=== PATIENT | female | born 2000 | race Caucasian/White ===

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

== ENCOUNTER 2022-01-22 11:02 | Emergency (ER) | payer OTHER ==
[2022-01-22 11:14] VITALS: RESP 16; TEMP 98.1
[2022-01-22] MEDS ORDERED: SODIUM CHLORIDE 0.9% 500 ML 500 ML IV STA (11:48)
[2022-01-22] MEDS ORDERED: SODIUM CHLORIDE 0.9% 1,000 ML IV STA (11:48)
[2022-01-22 12:01] LABS: Basophils % (A) 0 %; Eosinophils % (A) 1 %; HCT 34.2 % (34.0-46.0); HGB 12.1 gm/dL (11.4-16.0); Lymphocytes # (A) 1.6 k/uL (1.0-4.8); Lymphocytes % (A) 21 %; MCH 29.5 pg (25.0-35.0); MCHC 35.3 g/dL (31.0-37.0); MCV 83.8 fL (80.0-100.0); Monocytes # (A) 0.4 k/uL (0-1.0); Monocytes % (A) 5 %; Neutrophils # (A) 5.8 k/uL (1.3-7.7); Neutrophils % (A) 72 %; Platelet Count 297 k/uL (150-450); RBC 4.08 m/uL (3.80-5.40); RDW 13.5 % (11.5-15.5)
[2022-01-22 12:26] LABS: ALT 15 U/L (4-34); AST 17 U/L (14-36); African American GFR (CKD) >90 (>60 ml/min/1.73 sqM); Alkaline Phosphatase 58 U/L (38-126); Anion Gap 13 mmol/L; Blood Urea Nitrogen 5 mg/dL (7-17); Calcium 9.1 mg/dL (8.4-10.2); Carbon Dioxide 17 mmol/L (22-30); Chloride 105 mmol/L (98-107); Glucose 87 mg/dL (74-99); Non-African American GFR(CKD) >90 (>60 ml/min/1.73 sqM); Potassium 3.9 mmol/L (3.5-5.1); Sodium 135 mmol/L (137-145); Total Bilirubin 0.3 mg/dL (0.2-1.3); Total Protein 6.5 g/dL (6.3-8.2)
--- NOTE | 2022-01-22 12:28 | ED ---
General Adult HPI - General Chief complaint: Abdominal Pain Stated complaint: Abd pain,14 wks Time Seen by Provider: 01/22/22 11:10 Source: patient, RN notes reviewed Mode of arrival: ambulatory Limitations: no limitations - History of Present Illness Initial comments: 21-year-old female presents emergency department with chief complaint of lower abdominal pain. Patient states that she is currently 15 weeks . Patient sates her STORE HOST is Dr. Aguilera. Patient states that she contact on- call STORE HOST last night advises ecchymosis it was from ligament pain but seems to be worsening. She denies any vaginal bleeding or vaginal discharge. She states that the left lower quadrant. Patient states she does have mild left flank pain. Denies fever or chills. No increased nausea and diarrhea constipation - Related Data Previous Rx's Medication Instructions Recorded Albuterol Sulfate [Proair Hfa] 2 puff INHALATION Q4HR PRN #1 09/22/17 inhaler Azithromycin 250 mg PO DAILY #6 tab 09/22/17 Cephalexin [Keflex] 500 mg PO Q8HR #21 cap 01/22/22 Allergies Allergy/AdvReac Type Severity Reaction Status Date / Time No Known Allergies Allergy Verified 09/12/20 13:22 Review of Systems ROS Statement: Those systems with pertinent positive or pertinent negative responses have been documented in the HPI. ROS Other: All systems not noted in ROS Statement are negative. Past Medical History Past Medical History: Asthma Additional Past Medical History / Comment(s): knee dislocation History of Any Multi-Drug Resistant Organisms: None Reported Past Surgical History: No Surgical Hx Reported Past Psychological History: No Psychological Hx Reported Smoking Status: Current every day smoker Past Alcohol Use History: None Reported Past Drug Use History: None Reported General Exam Limitations: no limitations General appearance: alert, in no apparent distress Head exam: Present: atraumatic, normocephalic, normal inspection Eye exam: Present: normal appearance, PERRL, EOMI. Absent: scleral icterus, conjunctival injection, periorbital swelling ENT exam: Present: normal exam, normal oropharynx, mucous membranes moist Neck exam: Present: normal inspection. Absent: tenderness, meningismus, lymphadenopathy Respiratory exam: Present: normal lung sounds bilaterally. Absent: respiratory distress, wheezes, rales, rhonchi, stridor Cardiovascular Exam: Present: regular rate, normal rhythm, normal heart sounds. Absent: systolic murmur, diastolic murmur, rubs, gallop, clicks GI/Abdominal exam: Present: soft, tenderness (Left lower quadrant), normal bowel sounds. Absent: distended, guarding, rebound, rigid Back exam: Present: CVA tenderness (L). Absent: CVA tenderness (R) Neurological exam: Present: alert Skin exam: Present: warm, dry, intact, normal color. Absent: rash Course Vital Signs 01/22/22 11:11 Temperature 98.1 F Pulse Rate 98 Respiratory 16 Rate Blood Pressure 96/65 O2 Sat by Pulse 99 Oximetry Medical Decision Making - Medical Decision Making Ultrasound DOES NOT SHOW ANY SIGNIFICANT ABNORMALITY. PATIENT DOES HAVE MODERATE AMOUNT OF BACTERIA, 24 WBC'S AND URINALYSIS THOUGH IS SKEWED BY EPITHELIAL CELLS. PATIENT IS CURRENTLY 15 WEEKS WAS PLACED ON ANTIBIOTICS PENDING CULTURE. - Lab Data Result diagrams: 01/22/22 11:56 01/22/22 11:56 Lab Results 01/22/22 01/22/22 01/22/22 Range/Units 11:56 11:56 11:56 WBC 8.0 (4.0-11.0) k/uL RBC 4.08 (3.80-5.40) m/uL Hgb 12.1 (11.4-16.0) gm/dL Hct 34.2 (34.0-46.0) % MCV 83.8 (80.0-100.0) fL MCH 29.5 (25.0-35.0) pg MCHC 35.3 (31.0-37.0) g/dL RDW 13.5 (11.5-15.5) % Plt Count 297 (150-450) k/uL MPV 8.0 Neutrophils % 72 % Lymphocytes % 21 % Monocytes % 5 % Eosinophils % 1 % Basophils % 0 % Neutrophils # 5.8 (1.3-7.7) k/uL Lymphocytes # 1.6 (1.0-4.8) k/uL Monocytes # 0.4 (0-1.0) k/uL Eosinophils # 0.0 (0-0.7) k/uL Basophils # 0.0 (0-0.2) k/uL Sodium 135 L (137-145) mmol/L Potassium 3.9 (3.5-5.1) mmol/L Chloride 105 (98-107) mmol/L Carbon Dioxide 17 L (22-30) mmol/L Anion Gap 13 mmol/L BUN 5 L (7-17) mg/dL Creatinine 0.58 (0.52-1.04) mg/dL Est GFR (CKD-EPI)AfAm >90 (>60 ml/min/1.73 sqM) Est GFR (CKD-EPI)NonAf >90 (>60 ml/min/1.73 sqM) Glucose 87 (74-99) mg/dL Calcium 9.1 (8.4-10.2) mg/dL Total Bilirubin 0.3 (0.2-1.3) mg/dL AST 17 (14-36) U/L ALT 15 (4-34) U/L Alkaline Phosphatase 58 (38-126) U/L Total Protein 6.5 (6.3-8.2) g/dL Albumin 4.0 (3.5-5.0) g/dL Urine Color Yellow Urine Appearance Turbid H (Clear) Urine pH 6.5 (5.0-8.0) Ur Specific [place] 1.023 (1.001-1.035) Urine Protein 1+ H (Negative) Urine Glucose (UA) Negative (Negative) Urine Ketones Negative (Negative) Urine Blood Negative (Negative) Urine Nitrite Negative (Negative) Urine Bilirubin Negative (Negative) Urine Urobilinogen <2.0 (<2.0) mg/dL Ur Leukocyte Esterase Large H (Negative) Urine RBC 2 (0-5) /hpf Urine WBC 24 H (0-5) /hpf Ur Squamous Epith Cells 24 H (0-4) /hpf Urine Bacteria Many H (None) /hpf Urine Mucus Many H (None) /hpf Urine Yeast (Budding) Moderate H (None) /hpf Disposition Clinical Impression: Abdominal pain during , UTI (urinary tract infection) Disposition: HOME SELF-CARE Condition: Stable Instructions (If sedation given, give patient instructions): Abdominal Pain in (ED) Additional Instructions: Please return to the Emergency Department if symptoms worsen or any other concerns. Prescriptions: Cephalexin [Keflex] 500 mg PO Q8HR #21 cap Is patient prescribed a controlled substance at d/c from ED?: No Referrals: Jessica Chahal MD [Primary Care Provider] - 1-2 days Time of Disposition: 13:02
[2022-01-22 12:37] LABS: Appearance,Urine Turbid (Clear); Bacteria,Urine Many /hpf; Bilirubin,Urine Negative (Negative); Blood,Urine Negative (Negative); Budding Yeast,Urine Moderate /hpf; Color,Urine Yellow; Glucose,Urine (UA) Negative (Negative); Ketones,Urine Negative (Negative); Leukocyte Esterase,Urine Large (Negative); Mucus,Urine Many /hpf; Nitrite,Urine Negative (Negative); PH, Urine 6.5 (5.0-8.0); Protein,Urine 1+ (Negative); RBC,Urine 2 /hpf (0-5); Specific Gravity,Urine 1.023 (1.001-1.035); Squamous Epithelial Cell,Urine 24 /hpf (0-4); Urobilinogen,Urine <2.0 mg/dL (<2.0); WBC,Urine 24 /hpf (0-5)
--- NOTE | 2022-01-22 12:39 | US ---
EXAMINATION TYPE: US OB >= 14 wk fetus DATE OF EXAM: 01/22/2022 COMPARISON: US CLINICAL HISTORY: pain Pt states left side ABD cramping TECHNIQUE: Transabdominal (TA) GESTATIONAL AGE / DATING Physician Established: (14 weeks/5 days) EDC: 07/18/2022 Dates by LMP: LMP unknown Dates by First Scan: (15 weeks/0 days) EDC: 07/16/2022 Dates by Current Scan: (15 weeks/1 days) EDC: 07/15/2022 SURVEY IUP: Single PLACENTA: Anterior PREVIA: No Previa THANH: 11.5 cm Normal CERVICAL LENGTH (transabdominal: norm > 3.0cm): 3.5 cm BIOMETRY PRESENTATION: Vertex BPD: 2.9 cm 15 weeks / 2 days HC: 11.0 cm 15 weeks / 2 days AC: 8.9 cm 15 weeks / 1 days FL: 1.4 cm 14 weeks / 0 days ESTIMATED WEIGHT IN GRAMS: 103.2 grams ESTIMATED WEIGHT IN LBS/OZ: 0 lbs. 4 oz. WEIGHT PERCENTAGE BASED ON ESTABLISHED DATES: 32.4% HC/AC: 1.24 Normal FL/AC: 17 Normal HEART RATE: 155 bpm RHYTHM: Normal Single, viable IUP/ No abnormality visualized at this time to account for pt's pain IMPRESSION: Single live intrauterine with ultrasound age 15 weeks 1 day by current exam.
[2022-01-22] MEDS ORDERED: cefTRIAXone IN SWFI 1,000 MG/10 ML SYRINGE IVP STA (13:03)
[2022-01-22 13:16] VITALS: BP 109/52; PULSE 74
== END 2022-01-22 13:16 | disposition home or self-care (01) ==
LOC: EC 11:02
DX: O23.42 Unspecified infection of urinary tract in pregnancy, second trimester (principal); J45.909 Unspecified asthma, uncomplicated; F17.200 Nicotine dependence, unspecified, uncomplicated; Z3A.14 14 weeks gestation of pregnancy; Z37.0 Single live birth
CPT/HCPCS: 36415; 80053; 85025; 81001; 87086; 76805; 96374; 96361; 99284; J0696

== ENCOUNTER → 2022-04-09 | Outpatient (CLI) | payer OTHER ==
[2022-04-09 18:23] LABS: HCT 30.5 % (37.2-46.3); HGB 10.2 g/dL (12.0-15.0); MCH 29.5 pg (27.0-32.0); MCHC 33.4 g/dL (32.0-37.0); MCV 88.2 fL (80.0-97.0); Mean Platelet Volume 9.7 fL (9.5-12.2); NRBC Per 100 WBC 0 /100 WBCS (0.0-0.0); Platelet Count 276 X 10*3/uL (140-440); RBC 3.46 X 10*6/uL (4.10-5.20); RDW 12.6 % (11.5-14.5); WBC 9.64 X 10*3/uL (4.50-10.00)
== END | disposition home or self-care (01) ==
LOC: LABWHC1 11:48
PROVIDERS: ATTEND Obstetrics & Gynecology
DX: Z34.02 Encounter for supervision of normal first pregnancy, second trimester (principal); Z3A.00 Weeks of gestation of pregnancy not specified
CPT/HCPCS: 36415; 82950; 85027

== ENCOUNTER 2022-04-20 14:22 | Outpatient (CLI) | payer OTHER ==
--- NOTE | 2022-04-20 15:42 | US ---
EXAMINATION TYPE: US OB limited DATE OF EXAM: 04/20/2022 COMPARISON: NONE CLINICAL HISTORY: 21-year-old female THANH EXAM PERFORMED: Transabdominal (TA) GESTATIONAL AGE / DATING Physician Established: (27 weeks/2 days) EDC: 07/18/2022 No growth performed on today?s study per ordering physician SURVEY THANH: 18.8 cm Normal Ultrasound evidence of premature rupture of membranes? no HEART RATE: 152 bpm RHYTHM: Normal IMPRESSION: THANH measured within the normal range at 18.8 cm. We note measurement on 01/22/2022 of 11. 5 cm. Follow-up as clinically indicated.
[2022-04-20 16:36] VITALS: BP 119/64; PULSE 114; RESP 14; TEMP 96.4
--- NOTE | 2022-05-22 02:02 | P.MSEPDOC ---
Presenting Problems - Arrival Data Date of Arrival on Unit: 04/20/22 Time of Arrival on Unit: 14:22 Mode of Transport: Ambulatory - Complaint OB-Reason for Admission/Chief Complaint: Pain Medical History - Information : 1 Para: 0 Term: 0 : 0 Abortions: Spontaneous or Elective: 0 Number of Living Children: 0 - Gestational Age Gestational Age by ANAYELI (wks/days): 28 Weeks and 2 Days Review of Systems - Review of Systems Constitutional: No problems Breast: No problems ENT: No problems Cardiovascular: No problems Respiratory: No problems Gastrointestinal: No problems Genitourinary: No problems Musculoskeletal: No problems Neurological: No problems Skin: No problems Vital Signs - Temperature Temperature: 96.4 F Temperature Source: Temporal Artery Scan - Pulse Right Brachial Pulse Rate: 114 Pulse Assessment Method: Automatic Cuff - Respirations Respiratory Rate: 14 Oxygen Delivery Method: Room Air - Blood Pressure Right Arm Blood Pressure: 119/64 Blood Pressure Mean: 82 Blood Pressure Source: Automatic Cuff Medical Screen Scoring - Assessment - Baby A Baseline FHR: 140 Heart Rate - NICHD Category: Category I (Normal) NST: Reactive Physician Notification - Physician Notified Physician Notified Date: 04/20/22 Physician Notified Time: 16:00 Physician: Mary Ellen Espinosa New Order Received: Yes - Notification Comment Comment: advised to try pepcid OTC Maternal Triage Index - Maternal Triage Index Presenting for scheduled procedure w/no complaint: No - Stat/Priority 1 Stat Priority 1: No - Urgent/Priority 2 Urgent Priority 2: No - Prompt/Priority 3 Prompt Priority 3: No - Non-Urgent/Priority 4 Non-Urgent Priority 4: Yes Criteria Met for Priority 4: heartburn Disposition - Disposition OB Disposition: Discharge to home Discharge Date: 04/20/22 Discharge Time: 16:06 I agree with the RN Medical Screening Exam: Yes Case reviewed; plan agreed upon as documented in EMR&OBIX.: Yes Diagnosis: UNSPECIFIED ABDOMINAL PAIN
== END 2022-04-20 16:38 | disposition home or self-care (01) ==
LOC: FBPOP 14:22
PROVIDERS: ATTEND Obstetrics & Gynecology
DX: O99.613 Diseases of the digestive system complicating pregnancy, third trimester (principal); R10.9 Unspecified abdominal pain; Z3A.28 28 weeks gestation of pregnancy
CPT/HCPCS: 76815; G0463; 99213

== ENCOUNTER → 2022-10-26 | Outpatient (CLI) | payer OTHER ==
--- NOTE | 2022-10-27 20:38 | MR ---
EXAMINATION TYPE: MR knee LT wo con, MR knee RT wo con DATE OF EXAM: 10/26/2022 6:45 PM CLINICAL INDICATION:Female, 21 years old with history of M25.361 M25.362; , Bilateral knee pain, lock ing, and swelling for 9 years COMPARISON: MRI right knee 08/23/2016 TECHNIQUE: Multi planar, multi sequence imaging was performed of the knee including: Triplane proton density fat-saturated images and T1-weighted imaging. No Gadolinium was given. IV Contrast: cc (none if empty) FINDINGS: RIGHT: Medial meniscus: Intact Medial femorotibial cartilage: Intact Medial collateral ligament: Intact Lateral meniscus: Intact Lateral femorotibial cartilage: Intact Lateral collateral ligament complex: Intact Patellofemoral alignment: Normal Patellofemoral cartilage: Intact Extensor mechanism: Intact. There is flattening of the trochlear groove. Joint/bursal fluid: Mild edema within Hoffa's fat pad just below the patella. Muscles/tendons: The patellar tendon, quadriceps tendon, IT band, pes anserinus tendons, semimembrano pradeep tendon, popliteus tendon, and biceps femoris tendon are all within normal limits. Bone marrow: Resolution of prior bony edema involving the patella and femur. Mild amount of incre ased bony edema in the lateral aspect of the tibial plateau. Anterior cruciate ligament: Intact. Posterior cruciate ligament: Intact. Soft tissues: Unremarkable. LEFT: Medial meniscus: Intact Medial femorotibial cartilage: Intact Medial collateral ligament: Intact Lateral meniscus: Intact Lateral femorotibial cartilage: Intact Lateral collateral ligament complex: Intact Patellofemoral alignment: Within normal limits Patellofemoral cartilage: Intact no full-thickness defects Extensor mechanism: Intact. Flattening of the trochlear groove. Joint/bursal fluid: Mild edema within Hoffa's fat pad just below the patella. Muscles/tendons: The patellar tendon, quadriceps tendon, IT band, pes anserinus tendons, semimembrano pradeep tendon, popliteus tendon, and biceps femoris tendon are all within normal limits. Bone marrow: There is sclerotic area along the cortex of the distal left femur compatible with os sified nonossifying fibroma versus bone island. Area measures roughly 13 mm. Anterior cruciate ligament: Intact. Posterior cruciate ligament: Intact. Soft tissues: Unremarkable. IMPRESSION: RIGHT: 1. 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 This wendy elates with prior transient patellar dislocation relocation seen on 2017 study. 2. Edema within Hoffa's fat-pad correlate for infrapatellar fat pad impingement syndrome possibly se condary to #1. 3. Mild mild bony edema along the lateral tibial plateau posteriorly. Correlate for contusion. 4. No definitive evidence to suggest meniscal tear nor ligamentous injury. LEFT: 1. 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 2. Edema within Hoffa's fat-pad correlate for infrapatellar fat pad impingement syndrome. 3. No definitive evidence to suggest meniscal tear nor ligamentous injury. 4. No abnormal bony edema. 5. 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
== END | disposition home or self-care (01) ==
LOC: RADMRIMAIN 17:56
PROVIDERS: ATTEND Orthopaedic Surgery Sports Medicine
DX: M22.8X1 Other disorders of patella, right knee (principal); M22.8X2 Other disorders of patella, left knee; M25.362 Other instability, left knee; M25.361 Other instability, right knee; M79.4 Hypertrophy of (infrapatellar) fat pad

== ENCOUNTER → 2023-02-07 | Outpatient (CLI) | payer OTHER ==
--- NOTE | 2023-02-07 16:52 | US ---
EXAMINATION TYPE: Transabdominal DATE OF EXAM: 02/07/2023 4:29 PM COMPARISON: NONE CLINICAL INDICATION: Female, 22 years old with history of Z33.1 STATE, INCIDENTAL; incidenta l positive prgnancy tests, low beta hcg EXAM PERFORMED: Transvaginal (TV) and Transabdominal (TA) EXAM MEASUREMENTS: GESTATIONAL AGE / DATING Physician Established: Not yet established Dates by LMP: (6 weeks/1 days) EDC: 10/02/23 Dates by First Scan: No previous this is first scan Dates by Current Scan for: (5 weeks/4 days) EDC: 10/06/23 MATERNAL ANATOMY Uterus: 8.4x5.2x7.7cm Right Ovary: 3.5x2.7x4.1cm Left Ovary: 2.4x1.6x1.9cm Post CDS / Adnexa: wnl Presence of free fluid: yes in post cul-de-sac Presence of corpus luteal cyst: no Presence of subchorionic bleed: no GESTATION / SURVEY CRL: not visualized at this time MSD: 0.875 weeks/4 days) Yolk Sac (normal less than 6mm): 0.2 Heart Rate: not visualized at this time IUP: Gestational sac and yolk seen Date of LMP: 12/26/2022 Beta HcG (if available): Not available at this time IMPRESSION: Intrauterine gestational sac without pole or cardiac tones seen at this time. This could reflec t normal early IUP however blighted although more missed spontaneous cannot be excluded as w ell as ectopic . Correlate serial beta hCG and/or ultrasound.
[2023-02-07 17:03] LABS: Basophils % (A) 0 %; Eosinophils # (A) 0.1 k/uL (0-0.7); Eosinophils % (A) 1 %; HGB 11.9 gm/dL (11.4-16.0); Lymphocytes % (A) 32 %; MCH 30.4 pg (25.0-35.0); MCHC 33.9 g/dL (31.0-37.0); MCV 89.7 fL (80.0-100.0); Monocytes # (A) 0.3 k/uL (0-1.0); Monocytes % (A) 5 %; Neutrophils # (A) 3.8 k/uL (1.3-7.7); Neutrophils % (A) 60 %; Platelet Count 244 k/uL (150-450); WBC 6.3 k/uL (4.0-11.0)
[2023-02-07 17:13] LABS: ALT 17 U/L (4-34); AST 20 U/L (14-36); African American GFR (CKD) >90 (>60 ml/min/1.73 sqM); Albumin 4.1 g/dL (3.5-5.0); Albumin/Globulin Ratio 1.7; Alkaline Phosphatase 55 U/L (38-126); Anion Gap 11 mmol/L; Blood Urea Nitrogen 9 mg/dL (7-17); Carbon Dioxide 22 mmol/L (22-30); Chloride 105 mmol/L (98-107); Globulin 2.4 g/dL; Glucose 88 mg/dL (74-99); Non-African American GFR(CKD) >90 (>60 ml/min/1.73 sqM); Sodium 138 mmol/L (137-145); Total Bilirubin 0.3 mg/dL (0.2-1.3); Total Protein 6.5 g/dL (6.3-8.2)
[2023-02-07 17:29] LABS: HCG,Quantitative Serum 7308.2 mIU/mL
== END | disposition home or self-care (01) ==
LOC: RADUSWWP 15:08
PROVIDERS: ATTEND Family Medicine
DX: Z33.1 Pregnant state, incidental (principal); Z3A.01 Less than 8 weeks gestation of pregnancy
CPT/HCPCS: 76801; 76817; 80053; 84702; 85025

== ENCOUNTER → 2023-02-10 | Outpatient (CLI) | payer OTHER | END | disposition home or self-care (01) | LOC: LABMAIN 11:18 | PROVIDERS: ATTEND Physician Assistant Medical | DX: Z33.1 Pregnant state, incidental (principal) | CPT/HCPCS: 84702 ==